=== PATIENT | male | born 1960 | race Hispanic/Latino ===

== ENCOUNTER 2023-09-15 17:26 | Emergency (ER) | payer OTHER ==
[~2023-09-15] VITALS: Ht 175.3 cm; Wt 136.5 kg
[2023-09-15] MEDS ORDERED: LIDOCAINE 1%-EPI 1:100,000 20 ML VIAL ONE (21:39)
[2023-09-15] MEDS ORDERED: CEPH500B PO (22:07)
[2023-09-15] MEDS ORDERED: TETANUS/DIPHTHERIA TOXOID [ADULT] 0.5 ML VIAL IM ONE (22:30)
[2023-09-15 22:40] VITALS: BP 136/88; PULSE 76; RESP 16; O2SAT 99
== END 2023-09-15 22:46 | disposition home or self-care (01) ==
LOC: EDH 17:26
DX: S01.112A Laceration without foreign body of left eyelid and periocular area, initial encounter (principal); I10 Essential (primary) hypertension; Z98.890 Other specified postprocedural states; W22.8XXA Striking against or struck by other objects, initial encounter; Y93.89 Activity, other specified; Y92.89 Other specified places as the place of occurrence of the external cause; Y99.8 Other external cause status
CPT/HCPCS: 99283; 90714; 90471; 12011; J3490